=== PATIENT | female | born 1965 | race Caucasian/White ===

== ENCOUNTER 2016-10-12 08:25 | Day surgery (SDC) | payer BC ==
--- NOTE | ~2016-10-12 | EGD ---
EGD REPORT [facility] [address] [place] [place] [address] NAME: AISHA PEDROZA : 61 STATUS : REG [facility]#: [id number] AGE: 51 ADM/REG DATE : 10/12/16 MR#: [id number] REPORT SERV DATE: 10/12/16 DICTATED BY: IAIN BURCIAGA DATE: 10/12/16 REPORT STATUS : Draft TRANSCRIBED BY: [employer] [facility] DATE: 10/12/16 [facility] Patient Name: Aisha Pedroza Date of : 1965 Attending MD: IAIN BURCIAGA MD Procedure Date No Time: 10/12/2016 Procedure: Colonoscopy Indications: Follow-up of chronic ulcerative proctosigmoiditis, Last colonoscopy: September 2013 Referring MD: NESS SALAS MD, DELTA KIRKLAND Medicines: Propofol per Anesthesia Complications: No immediate complications. Estimated blood loss: Minimal. Procedure: Pre-Anesthesia Assessment: - After reviewing the risks and benefits, the patient was deemed in satisfactory condition to undergo the procedure. - Prior to the procedure, a History and Physical was performed, and patient medications and allergies were reviewed. The patient's tolerance of previous anesthesia was also reviewed. The risks and benefits of the procedure and the sedation options and risks were discussed with the patient. All questions were answered, and informed consent was obtained. Prior Anticoagulants: The patient has taken no previous anticoagulant or antiplatelet agents. ASA Grade Assessment: II - A patient with mild systemic disease. After reviewing the risks and benefits, the patient was deemed in satisfactory condition to undergo the procedure. After I obtained informed consent, the scope was passed under direct vision. Throughout the procedure, the patient's blood pressure, pulse, and oxygen saturations were monitored continuously. The CF [id number] was introduced through the anus and advanced to the cecum, identified by appendiceal orifice and ileocecal valve. The colonoscopy was performed without difficulty. The ileocecal valve was photographed. The patient tolerated the procedure well. The quality of the bowel preparation was adequate to identify polyps 6 mm and larger in size. The bowel preparation used was SUPREP. Scope withdrawal time was greater than 12 minutes. Findings: The perianal and digital rectal examinations were normal. Pertinent negatives include normal sphincter tone. EGD REPORT [address] [address] NAME: AISHA PEDROZA : 61 [place] [facility] [place] [id number] AGE: 51 ADM/REG DATE : 10/12/16 MR#: [id number] REPORT SERV DATE: 10/12/16 DICTATED BY: IAIN BURCIAGA DATE: 10/12/16 REPORT STATUS : Draft TRANSCRIBED BY: [employer] DATE: 10/12/16 Non-bleeding internal hemorrhoids were found during retroflexion and were small and Grade I (internal hemorrhoids that do not prolapse). The rectum, sigmoid colon, descending colon, transverse colon, ascending colon and cecum appeared normal. Biopsies were taken with a cold forceps for histology. Estimated blood loss was minimal. The exam was otherwise without abnormality. Impression: - Non-bleeding internal hemorrhoids. - The rectum, sigmoid colon, descending colon, transverse colon, ascending colon and cecum are normal. Biopsied. - The examination was otherwise normal. - Ulcerative colitis in remission. Recommendation: - Discharge patient to home (ambulatory). - Return to previous diet. - Continue present medications including Remicade and metrotrexate per Dr. Kikrland. - Discontinue Lialda/Apriso as colitis in remission. - Await pathology results. - Repeat colonoscopy in 3 years for surveillance. - Return to GI clinic in 1 year and as needed. - Patient has a contact number available for emergencies. The signs and symptoms of potential delayed complications were discussed with the patient. Return to normal activities tomorrow. Written discharge instructions were provided to the patient. Procedure Code(s): --- Professional --- 46631, Colonoscopy, flexible, proximal to splenic flexure; with biopsy, single or multiple Diagnosis Code(s): --- Professional --- K64.0, First degree hemorrhoids K51.90, Ulcerative colitis, unspecified, without complications K51.30, Ulcerative (chronic) rectosigmoiditis without complications CPT copyright 2013 [employer]. All rights reserved. The codes documented in this report are preliminary and upon certified procedural coder review may be revised to meet current compliance requirements. IAIN BURCIAGA MD EGD REPORT [facility] [address] [address] NAME: AISHA PEDROZA : 61 [place]US : [place] [facility] [place]#: [id number] AGE: 51 ADM/REG DATE : 10/12/16 MR#: [id number] REPORT SERV DATE: 10/12/16 DICTATED BY: IAIN BURCIAGA DATE: 10/12/16 REPORT STATUS : Draft TRANSCRIBED BY: [employer] DATE: 10/12/16 10/12/2016 10:37 AM This report has been signed electronically. Number of Addenda: 0 Note Initiated On: 10/12/2016 9:49 AM Scope Withdrawal Time 0 hours 12 minutes 47 seconds [address] [place] [id number]
[~2016-10-12 08:25] MED LIST: ACIPHEX PO; AMB10 PO; APRISO0.375 GM PO; ATV1 PO; BEN25 PO; DOLOPHINE5 MG PO; ESTRACE1 MG PO; FOLIC PO; METHATAB5B; METHOC750B PO; MTX2.5 PO; NEUR600 PO; OXYIR5 MG PO; P10 PO; P5 PO; PRILOSEC40 MG PO; PROMETRIUM PO; REG PO; REMICADE IV; TRAZODONE150 MG PO; ZANAFLEX 4 MG TA4 MG PO; ZOL100 PO; [UNRECOGNIZED DRUG - OTHER] PO
== END 2016-10-12 23:59 | disposition home or self-care (01) ==
LOC: DMU 08:25
PROVIDERS: Internal Medicine Gastroenterology
PROC: 0DBH8ZX Excision of Cecum, Via Natural or Artificial Opening Endoscopic, Diagnostic (ICD-10-PCS; 2016-10-12)
PROC: 0DBK8ZX Excision of Ascending Colon, Via Natural or Artificial Opening Endoscopic, Diagnostic (ICD-10-PCS; 2016-10-12)
PROC: 0DBL8ZX Excision of Transverse Colon, Via Natural or Artificial Opening Endoscopic, Diagnostic (ICD-10-PCS; 2016-10-12)
PROC: 0DBM8ZX Excision of Descending Colon, Via Natural or Artificial Opening Endoscopic, Diagnostic (ICD-10-PCS; 2016-10-12)
PROC: 0DBN8ZX Excision of Sigmoid Colon, Via Natural or Artificial Opening Endoscopic, Diagnostic (ICD-10-PCS; 2016-10-12)
PROC: 0DBP8ZX Excision of Rectum, Via Natural or Artificial Opening Endoscopic, Diagnostic (ICD-10-PCS; principal; 2016-10-12 09:45)
DX: K51.90 Ulcerative colitis, unspecified, without complications (principal); K51.30 Ulcerative (chronic) rectosigmoiditis without complications; K64.0 First degree hemorrhoids; J45.909 Unspecified asthma, uncomplicated; M79.7 Fibromyalgia; M54.9 Dorsalgia, unspecified; M19.90 Unspecified osteoarthritis, unspecified site; M85.80 Other specified disorders of bone density and structure, unspecified site; F41.9 Anxiety disorder, unspecified; F32.9 Major depressive disorder, single episode, unspecified; K90.41 Non-celiac gluten sensitivity; K31.84 Gastroparesis; G89.29 Other chronic pain; G57.91 Unspecified mononeuropathy of right lower limb; Z96.89 Presence of other specified functional implants; Z88.0 Allergy status to penicillin; Z98.1 Arthrodesis status; Z91.040 Latex allergy status; Z91.048 Other nonmedicinal substance allergy status; Z87.891 Personal history of nicotine dependence
CPT/HCPCS: 88305